=== PATIENT | female | born 1985 | race Caucasian/White ===

== ENCOUNTER 2018-12-27 12:11 | Emergency (ER) | payer OTHER ==
[2018-12-27] MEDS: ONDANSETRON (ODT) 4 MG TAB ODT (13:19)
== END 2018-12-27 14:10 | disposition home or self-care (01) ==
LOC: FTE 12:11
DX: R11.2 Nausea with vomiting, unspecified (principal); R19.7 Diarrhea, unspecified
CPT/HCPCS: 99283; Z7610